=== PATIENT | female | born 1935 | race Hispanic/Latino ===

== ENCOUNTER → 2022-07-02 | Outpatient (CLI) | payer MEDICARE ==
[2022-07-02 13:09] LABS: BASOPHILS % (AUTO) 0.2 % (0.0-5.0); EOSINOPHILS % (AUTO) 0.4 % (0.0-8.0); HEMATOCRIT 31.1 % (36-48); LYMPHOCYTES % (AUTO) 41.1 % (21.0-51.0); MEAN CORPUSCULAR HEMOGLOBIN 32.5 pg (27.0-33.0); MEAN CORPUSCULAR HGB CONC 32.2 g/dL (32.0-36.0); MONOCYTES % (AUTO) 11.2 % (3.0-13.0); NEUTROPHILS % (AUTO) 46.9 % (40.0-77.0); PLATELET COUNT (AUTO) 174 K/uL (130-400); RED BLOOD CELL COUNT(AUTO) 3.08 MIL/uL (4.00-5.50); RED CELL DISTRIBUTION WIDTH 13.1 % (11.0-15.5); WHITE BLOOD COUNT (AUTO) 5.5 K/uL (4.8-10.8)
[2022-07-02 13:22] LABS: POTASSIUM 5.1 mmol/L (3.5-5.1)
== END | disposition home or self-care (01) ==
LOC: DAH 10:00 → EDSTATUS 13:00
PROVIDERS: ATTEND Urology
DX: R31.9 Hematuria, unspecified (principal); N13.30 Unspecified hydronephrosis; U07.1 COVID-19; Z53.8 Procedure and treatment not carried out for other reasons
CPT/HCPCS: 93005; 87426; 80048; 85025; 36415; A6260

== ENCOUNTER 2022-08-01 07:09 | Day surgery (SDC) | payer MEDICARE ==
[2022-07-30 12:45] LABS: BASOPHILS % (AUTO) 0.3 % (0.0-5.0); EOSINOPHILS % (AUTO) 0.7 % (0.0-8.0); HEMATOCRIT 31.1 % (36-48); LYMPHOCYTES % (AUTO) 28.9 % (21.0-51.0); MEAN CORPUSCULAR HEMOGLOBIN 33.2 pg (27.0-33.0); MEAN CORPUSCULAR HGB CONC 32.5 g/dL (32.0-36.0); MEAN CORPUSCULAR VOLUME 102.3 fL (79-99); MONOCYTES % (AUTO) 10.8 % (3.0-13.0); NEUTROPHILS % (AUTO) 59.1 % (40.0-77.0); PLATELET COUNT (AUTO) 188 K/uL (130-400); RED BLOOD CELL COUNT(AUTO) 3.04 MIL/uL (4.00-5.50); RED CELL DISTRIBUTION WIDTH 14.6 % (11.0-15.5); WHITE BLOOD COUNT (AUTO) 5.7 K/uL (4.8-10.8)
[2022-07-30 13:00] LABS: CREATININE 0.9 mg/dL (0.5-1.5); POTASSIUM 4.4 mmol/L (3.5-5.1)
[2022-07-30 13:34] VITALS: BP 180/76
[~2022-08-01] VITALS: Ht 157.5 cm; Wt 58.3 kg
[2022-08-01] VITALS (19 sets, daily range): BP systolic 156–190; BP diastolic 59–87
[~2022-08-01 07:09] MED LIST: ACET-2079 PO; APIX5TAB PO; METO25TA6 PO; METO50TA18 PO; PRAV20TA4 PO
[2022-08-01] MEDS ORDERED: LACTATED RINGERS 1000ML 1,000 ML IV ONE (07:35)
[2022-08-01] MEDS ORDERED: IOHEXOL-350 50ML VIAL IV ONE (07:53)
[2022-08-01] MEDS ORDERED: FENTANYL CITRATE PF 50 MCG/1 ML 2ML VIAL ONE (07:57)
[2022-08-01] MEDS ORDERED: ROCURONIUM 10MG/1ML SYR 10 MG/ML ML ONE (07:57)
[2022-08-01] MEDS ORDERED: ONDANSETRON 4MG INJ ONE (07:57)
[2022-08-01] MEDS ORDERED: PROPOFOL 10 MG/ML 20ML VIAL IV ONE (07:57)
[2022-08-01] MEDS ORDERED: CEFTRIAXONE 1G VIAL IVPB PRN (08:00)
[2022-08-01] MEDS ORDERED: PHENYLEPHRINE HCL 10 MG/ML 1ML VIAL IV ONE (09:42)
[2022-08-01] MEDS ORDERED: NEOSTIGMINE 5MG/5ML SYR IV ONE (09:45)
[2022-08-01] MEDS ORDERED: GLYCOPYRROLATE 1 MG/5 ML SYRINGE ONE (09:45)
[2022-08-01] MEDS ORDERED: MORPHINE 4 MG SYG ONE (10:17)
[2022-08-01] MEDS ORDERED: MORPHINE 2 MG SYG ONE (10:34)
[2022-08-01] MEDS ORDERED: PHENAZOPYRIDINE HCL 200 MG TABLET ONE (11:21)
[2022-08-01] MEDS ORDERED: HYDRALAZINE 20MG/ML VIAL IV PRN (13:30)
== END 2022-08-01 11:45 | disposition home or self-care (01) ==
LOC: DAH 07:09
PROVIDERS: ATTEND Urology
DX: N13.1 Hydronephrosis with ureteral stricture, not elsewhere classified (principal); Z20.822 Contact with and (suspected) exposure to COVID-19; N95.2 Postmenopausal atrophic vaginitis; R31.9 Hematuria, unspecified; I10 Essential (primary) hypertension; M19.90 Unspecified osteoarthritis, unspecified site; I48.91 Unspecified atrial fibrillation; Z79.01 Long term (current) use of anticoagulants; Z79.899 Other long term (current) drug therapy; Z80.7 Family history of other malignant neoplasms of lymphoid, hematopoietic and related tissues
CPT/HCPCS: 80048; 85025; 87426; 36415; 93005; 52332; 74420; A6260; A4663; J7120 ×2; C1769; C1758; C2617; J3010; J3490; J2710; J0696; J2704; J2405; J2270; J2370; Q9967; A4358; A4215; A4223; A4222; A4221; A4600; A4510

== ENCOUNTER 2023-04-10 15:03 | Inpatient (IN) | payer MEDICARE ==
[~2023-04-10] VITALS: Ht 160 cm; Wt 68.7 kg
[~2023-04-10 15:03] MED LIST changes: +BUSP5TAB3 PO; +FOLI0.8T3 PO; +LOSA-418 PO; -METO50TA18 PO; +TRAM50TA4 PO
[2023-04-10] MEDS ORDERED: 0.9%NACL 1000ML 1,779 ML IV ONE (16:00)
[2023-04-10 16:09] LABS: BASOPHILS # (AUTO) 0.02 K/uL (0.00-0.20); BASOPHILS % (AUTO) 0.5 % (0.0-5.0); EOSINOPHILS # (AUTO) 0.04 K/uL (0.00-0.70); EOSINOPHILS % (AUTO) 0.9 % (0.0-8.0); HEMATOCRIT 22.7 % (36-48); IMMATURE GRANULOCYTE ABSOLUTE 0.02 K/uL (0-1); LYMPHOCYTES # (AUTO) 1.2 K/uL (1.0-4.8); LYMPHOCYTES % (AUTO) 26.6 % (21.0-51.0); MEAN CORPUSCULAR HEMOGLOBIN 35.6 pg (27.0-33.0); MEAN CORPUSCULAR HGB CONC 34.4 g/dL (32.0-36.0); MEAN CORPUSCULAR VOLUME 103.7 fL (79-99); MONOCYTES # (AUTO) 0.6 K/uL (0.1-1.0); MONOCYTES % (AUTO) 12.8 % (3.0-13.0); NEUTROPHILS # (AUTO) 2.6 K/uL (1.8-7.7); NEUTROPHILS % (AUTO) 58.7 % (40.0-77.0); PLATELET COUNT (AUTO) 95 K/uL (130-400); RED BLOOD CELL COUNT(AUTO) 2.19 MIL/uL (4.00-5.50); RED CELL DISTRIBUTION WIDTH 16.2 % (11.0-15.5); WHITE BLOOD COUNT (AUTO) 4.4 K/uL (4.8-10.8)
[2023-04-10 16:23] LABS: CREATININE 1.2 mg/dL (0.5-1.5); POTASSIUM 3.7 mmol/L (3.5-5.1)
[2023-04-10] MEDS ORDERED: GUAIFENESIN-DM 200/20 MG 10 ML PO PRN (17:00)
[2023-04-10] MEDS ORDERED: GUAIFENESIN SUGAR-FREE 100 MG/5 ML UDCUP PO PRN (17:00)
[2023-04-10] MEDS ORDERED: GLUCAGON 1MG KIT 1 MG ML IM PRN (17:00)
[2023-04-10] MEDS ORDERED: ZOLPIDEM TARTRATE 5 MG TAB PO PRN (17:00)
[2023-04-10] MEDS ORDERED: POLYETHYLENE GLYCOL 3350 17 GM POWD.PACK PO PRN (17:00)
[2023-04-10] MEDS ORDERED: MAG/ALUM/SIMETH 30 ML UDCUP PO PRN (17:00)
[2023-04-10] MEDS ORDERED: LACTULOSE 20 GM/30 ML UDCUP PO PRN (17:00)
[2023-04-10] MEDS ORDERED: NITROGLYCERIN 0.4 MG SL TAB SL PRN (17:00)
[2023-04-10] MEDS ORDERED: DOCUSATE SODIUM 100 MG CAP PO PRN (17:00)
[2023-04-10] MEDS ORDERED: POTASSIUM CHLORIDE 20MEQ/100ML 100 ML IV PRN ×2 (17:00)
[2023-04-10] MEDS ORDERED: DEXTROSE 50%-WATER 50 ML DISP.SYRIN IV PRN (17:00)
[2023-04-10] MEDS ORDERED: DiphenhydrAMINE HCL 50 MG/ML VIAL IV PRN (17:00)
[2023-04-10] MEDS ORDERED: POTASSIUM CHLORIDE 10% ELIXIR 20 MEQ/15 ML UDCUP PO PRN (17:00)
[2023-04-10] MEDS ORDERED: DIPHENHYDRAMINE HCL 25 MG CAPSULE PO PRN (17:00)
[2023-04-10] MEDS ORDERED: ACETAMINOPHEN 325 MG TAB PO PRN (17:00)
[2023-04-10] MEDS ORDERED: ALPRAZOLAM 0.5 MG TABLET PO PRN (17:00)
[2023-04-10] MEDS: IPRATROPIUM 0.5 MG/2.5 ML INH IH SCH ×2 (18:18→23:11)
[2023-04-10] MEDS: SODIUM CHLORIDE 3% FOR INHALATION 4 ML/AMP VIAL.NEB IH SCH ×2 (18:19→23:11)
[2023-04-10 18:22] VITALS: PULSE 79; RESP 12
[2023-04-10 18:23] VITALS: PULSE 78; RESP 12; O2SAT 100
[2023-04-10] MEDS: CEFEPIME HCL 2 GM VIAL IVPB SCH (18:24)
[2023-04-10] MEDS: BUSPIRONE HCL 5 MG TABLET PO SCH (20:34)
[2023-04-10] MEDS: FAMOTIDINE 20MG VIAL IV SCH (20:34)
[2023-04-10] MEDS: INSULIN HUMULIN R 100 UNIT/ML 3ML SQ SCH (20:38)
[2023-04-10 21:30] VITALS: BP 117/70; PULSE 88; RESP 18
[2023-04-10] MEDS: ACETAMINOPHEN 325 MG TAB PO PRN (21:49)
[2023-04-10 22:00] VITALS: O2SAT 96
[2023-04-10 23:11] VITALS: PULSE 78; RESP 14
[2023-04-10 23:37] VITALS: BP 113/52; PULSE 80; RESP 18
[2023-04-11] VITALS (16 sets, daily range): BP systolic 103–139; BP diastolic 57–81; PULSE 72–115; RESP 14–20; O2SAT 96–100
[2023-04-11 04:15] LABS: ALBUMIN 1.8 g/dL (3.5-5.0); BILIRUBIN,TOTAL 0.5 mg/dL (0.2-1.0); MAGNESIUM 1.2 mg/dL (1.80-2.40); POTASSIUM 3.3 mmol/L (3.5-5.1); TOTAL PROTEIN, SERUM 4.7 g/dL (6.0-8.3)
[2023-04-11] MEDS: CEFEPIME HCL 2 GM VIAL IVPB SCH ×2 (05:06→17:12)
[2023-04-11] MEDS: KCL 20 MEQ ERTAB PO PRN (05:06)
[2023-04-11] MEDS: ACETAMINOPHEN 325 MG TAB PO PRN (05:08)
[2023-04-11] MEDS: INSULIN HUMULIN R 100 UNIT/ML 3ML SQ SCH ×4 (06:03→21:00)
[2023-04-11] MEDS: MAGNESIUM 2GM PREMIX 50ML 50 ML IV PRN (06:38)
[2023-04-11] MEDS: IPRATROPIUM 0.5 MG/2.5 ML INH IH SCH ×4 (06:56→23:00)
[2023-04-11] MEDS: SODIUM CHLORIDE 3% FOR INHALATION 4 ML/AMP VIAL.NEB IH SCH ×4 (06:56→23:00)
[2023-04-11] MEDS ORDERED: SODI100037 PO (07:36)
[2023-04-11] MEDS ORDERED: ACET-2247 PO (07:36)
[2023-04-11] MEDS ORDERED: NON-FORMULARY MEDICATION 1 EACH (Folic Acid 1 MG) PO SCH (12:00)
[2023-04-11] MEDS: FOLIC ACID 1 MG TABLET PO SCH (12:27)
[2023-04-11] MEDS: DRONABINOL 2.5 MG CAP PO SCH (15:34)
[2023-04-11 17:37] LABS: HEMATOCRIT 23.2 % (36-48)
[2023-04-11 17:45] LABS: % IRON SATURATION 14.8 % (22-44)
[2023-04-11 18:12] LABS: APPEARANCE,URINE CLEAR (CLEAR); BILIRUBIN,URINE NEGATIVE (NEGATIVE); COLOR,URINE LIGHT-YELLOW (YELLOW); GLUCOSE, URINE (UA) NEGATIVE (NEGATIVE); KETONES,URINE NEGATIVE (NEGATIVE); LEUKOCYTE ESTERASE ,URINE NEGATIVE Leu/uL (NEGATIVE); NITRATE,URINE NEGATIVE (NEGATIVE); OCCULT BLOOD,URINE LARGE (NEGATIVE); PH,URINE 5.5 (5.0-8.0); PROTEIN,URINE NEGATIVE (NEGATIVE); UROBILINOGEN,URINE 0.2 mg/dL (0.2-1.0)
[2023-04-11 18:13] LABS: THYROID STIMULATING HORMONE 6.29 uIU/mL (0.36-3.74)
[2023-04-11 18:14] LABS: MUCUS,URINE RARE LPF (None Seen); SQUAMOUS EPITHELIAL CELL,UR RARE /HPF (0-2)
[2023-04-11] MEDS ORDERED: FUROSEMIDE 40MG VIAL IV ONE (19:30)
[2023-04-11] MEDS: APIXABAN 5 MG TABLET PO SCH (20:34)
[2023-04-11] MEDS: FAMOTIDINE 20MG VIAL IV SCH (20:34)
[2023-04-11] MEDS: BUSPIRONE HCL 5 MG TABLET PO SCH (20:34)
[2023-04-11] MEDS: METOPROLOL TARTRATE 25 MG TAB PO SCH (20:35)
[2023-04-12] VITALS (14 sets, daily range): BP systolic 106–132; BP diastolic 58–73; PULSE 62–86; RESP 17–20; O2SAT 95–100
[2023-04-12] MEDS: ACETAMINOPHEN 325 MG TAB PO PRN (00:54)
[2023-04-12 04:23] LABS: BASOPHILS # (AUTO) 0.03 K/uL (0.00-0.20); BASOPHILS % (AUTO) 0.7 % (0.0-5.0); EOSINOPHILS # (AUTO) 0.05 K/uL (0.00-0.70); EOSINOPHILS % (AUTO) 1.1 % (0.0-8.0); IMMATURE GRANULOCYTE ABSOLUTE 0.01 K/uL (0-1); LYMPHOCYTES # (AUTO) 1.1 K/uL (1.0-4.8); LYMPHOCYTES % (AUTO) 23.6 % (21.0-51.0); MEAN CORPUSCULAR HEMOGLOBIN 35.2 pg (27.0-33.0); MEAN CORPUSCULAR HGB CONC 35.6 g/dL (32.0-36.0); MEAN CORPUSCULAR VOLUME 98.8 fL (79-99); MONOCYTES # (AUTO) 0.6 K/uL (0.1-1.0); MONOCYTES % (AUTO) 13.6 % (3.0-13.0); NEUTROPHILS # (AUTO) 2.7 K/uL (1.8-7.7); NEUTROPHILS % (AUTO) 60.8 % (40.0-77.0); PLATELET COUNT (AUTO) 78 K/uL (130-400); RED BLOOD CELL COUNT(AUTO) 2.53 MIL/uL (4.00-5.50); RED CELL DISTRIBUTION WIDTH 18.6 % (11.0-15.5); WHITE BLOOD COUNT (AUTO) 4.5 K/uL (4.8-10.8)
[2023-04-12 04:27] LABS: MAGNESIUM 1.4 mg/dL (1.80-2.40); POTASSIUM 3.4 mmol/L (3.5-5.1)
[2023-04-12] MEDS: CEFEPIME HCL 2 GM VIAL IVPB SCH ×2 (04:43→17:15)
[2023-04-12 04:51] LABS: B-TYPE NATRIURETIC PEPTIDE 168 pg/mL (0-100)
[2023-04-12] MEDS: KCL 20 MEQ ERTAB PO PRN ×3 (05:06→09:14)
[2023-04-12] MEDS: MAGNESIUM 2GM PREMIX 50ML 50 ML IV PRN (05:07)
[2023-04-12] MEDS: IPRATROPIUM 0.5 MG/2.5 ML INH IH SCH ×4 (07:00→23:12)
[2023-04-12] MEDS: SODIUM CHLORIDE 3% FOR INHALATION 4 ML/AMP VIAL.NEB IH SCH ×4 (07:00→23:12)
[2023-04-12] MEDS: INSULIN HUMULIN R 100 UNIT/ML 3ML SQ SCH ×4 (07:30→20:21)
[2023-04-12] MEDS: APIXABAN 5 MG TABLET PO SCH ×2 (09:13→20:19)
[2023-04-12] MEDS: SODIUM CHLORIDE 1,000 MG TAB PO SCH (09:14)
[2023-04-12] MEDS: DRONABINOL 2.5 MG CAP PO SCH (09:14)
[2023-04-12] MEDS: METOPROLOL TARTRATE 25 MG TAB PO SCH ×2 (09:14→20:19)
[2023-04-12] MEDS: ONDANSETRON 4MG INJ IV PRN (09:28)
[2023-04-12] MEDS ORDERED: NON-FORMULARY MEDICATION 1 EACH (Pravastatin Sodium 20 MG) PO SCH (12:00)
[2023-04-12] MEDS: ATORVASTATIN 10 MG TABLET PO SCH (12:52)
[2023-04-12] MEDS: FOLIC ACID 1 MG TABLET PO SCH (12:52)
[2023-04-12] MEDS: BUSPIRONE HCL 5 MG TABLET PO SCH (20:19)
[2023-04-12] MEDS: FAMOTIDINE 20MG VIAL IV SCH (20:19)
[2023-04-13] VITALS (14 sets, daily range): BP systolic 98–135; BP diastolic 52–76; PULSE 69–87; RESP 16–22; O2SAT 96–100
[2023-04-13] MEDS: CEFEPIME HCL 2 GM VIAL IVPB SCH ×2 (04:49→17:16)
[2023-04-13] MEDS: ACETAMINOPHEN 325 MG TAB PO PRN ×2 (04:51→17:05)
[2023-04-13 05:45] LABS: BASOPHILS # (AUTO) 0.03 K/uL (0.00-0.20); BASOPHILS % (AUTO) 0.6 % (0.0-5.0); EOSINOPHILS # (AUTO) 0.08 K/uL (0.00-0.70); EOSINOPHILS % (AUTO) 1.6 % (0.0-8.0); HEMATOCRIT 28.1 % (36-48); IMMATURE GRANULOCYTE ABSOLUTE 0.03 K/uL (0-1); LYMPHOCYTES # (AUTO) 1.2 K/uL (1.0-4.8); LYMPHOCYTES % (AUTO) 24.3 % (21.0-51.0); MEAN CORPUSCULAR HEMOGLOBIN 35.1 pg (27.0-33.0); MEAN CORPUSCULAR HGB CONC 34.5 g/dL (32.0-36.0); MEAN CORPUSCULAR VOLUME 101.8 fL (79-99); MONOCYTES # (AUTO) 0.5 K/uL (0.1-1.0); MONOCYTES % (AUTO) 10.6 % (3.0-13.0); NEUTROPHILS # (AUTO) 3.1 K/uL (1.8-7.7); NEUTROPHILS % (AUTO) 62.3 % (40.0-77.0); PLATELET COUNT (AUTO) 78 K/uL (130-400); RED BLOOD CELL COUNT(AUTO) 2.76 MIL/uL (4.00-5.50); RED CELL DISTRIBUTION WIDTH 18.2 % (11.0-15.5)
[2023-04-13 05:47] LABS: POTASSIUM 4.2 mmol/L (3.5-5.1)
[2023-04-13] MEDS: SODIUM CHLORIDE 3% FOR INHALATION 4 ML/AMP VIAL.NEB IH SCH ×2 (06:26→11:21)
[2023-04-13] MEDS: IPRATROPIUM 0.5 MG/2.5 ML INH IH SCH ×4 (06:26→23:09)
[2023-04-13] MEDS: INSULIN HUMULIN R 100 UNIT/ML 3ML SQ SCH ×4 (07:30→20:42)
[2023-04-13] MEDS: APIXABAN 5 MG TABLET PO SCH ×2 (08:48→20:43)
[2023-04-13] MEDS: SODIUM CHLORIDE 1,000 MG TAB PO SCH (08:48)
[2023-04-13] MEDS: METOPROLOL TARTRATE 25 MG TAB PO SCH ×2 (08:48→20:43)
[2023-04-13] MEDS: DRONABINOL 2.5 MG CAP PO SCH (08:48)
[2023-04-13] MEDS: ONDANSETRON 4MG INJ IV PRN (09:04)
[2023-04-13] MEDS: ATORVASTATIN 10 MG TABLET PO SCH (12:29)
[2023-04-13] MEDS: FOLIC ACID 1 MG TABLET PO SCH (12:29)
[2023-04-13] MEDS: FAMOTIDINE 20MG VIAL IV SCH (20:43)
[2023-04-13] MEDS: BUSPIRONE HCL 5 MG TABLET PO SCH (20:43)
[2023-04-14] VITALS (9 sets, daily range): BP systolic 117–154; BP diastolic 59–80; PULSE 64–80; RESP 18–20; O2SAT 96–100
[2023-04-14 04:34] LABS: BASOPHILS # (AUTO) 0.03 K/uL (0.00-0.20); BASOPHILS % (AUTO) 0.7 % (0.0-5.0); EOSINOPHILS % (AUTO) 2.3 % (0.0-8.0); IMMATURE GRANULOCYTE ABSOLUTE 0.01 K/uL (0-1); LYMPHOCYTES # (AUTO) 1.1 K/uL (1.0-4.8); LYMPHOCYTES % (AUTO) 25.5 % (21.0-51.0); MEAN CORPUSCULAR HEMOGLOBIN 34.8 pg (27.0-33.0); MEAN CORPUSCULAR HGB CONC 35.2 g/dL (32.0-36.0); MEAN CORPUSCULAR VOLUME 98.8 fL (79-99); MONOCYTES # (AUTO) 0.6 K/uL (0.1-1.0); MONOCYTES % (AUTO) 14.8 % (3.0-13.0); NEUTROPHILS # (AUTO) 2.4 K/uL (1.8-7.7); NEUTROPHILS % (AUTO) 56.5 % (40.0-77.0); PLATELET COUNT (AUTO) 65 K/uL (130-400); RED BLOOD CELL COUNT(AUTO) 2.53 MIL/uL (4.00-5.50); RED CELL DISTRIBUTION WIDTH 17.7 % (11.0-15.5); WHITE BLOOD COUNT (AUTO) 4.3 K/uL (4.8-10.8)
[2023-04-14 04:42] LABS: CREATININE 0.8 mg/dL (0.5-1.5); POTASSIUM 4.1 mmol/L (3.5-5.1)
[2023-04-14] MEDS: INSULIN HUMULIN R 100 UNIT/ML 3ML SQ SCH ×3 (05:16→16:30)
[2023-04-14] MEDS: ACETAMINOPHEN 325 MG TAB PO PRN (05:33)
[2023-04-14] MEDS: IPRATROPIUM 0.5 MG/2.5 ML INH IH SCH ×2 (06:42→11:17)
[2023-04-14] MEDS: SODIUM CHLORIDE 1,000 MG TAB PO SCH (08:00)
[2023-04-14] MEDS: APIXABAN 5 MG TABLET PO SCH (08:00)
[2023-04-14] MEDS: METOPROLOL TARTRATE 25 MG TAB PO SCH (08:00)
[2023-04-14] MEDS: DRONABINOL 2.5 MG CAP PO SCH (08:00)
[2023-04-14] MEDS: FOLIC ACID 1 MG TABLET PO SCH (12:21)
[2023-04-14] MEDS: ATORVASTATIN 10 MG TABLET PO SCH (12:21)
== END 2023-04-14 16:30 | disposition hospice, home (50) | DRG 640 ==
LOC: EDH 15:03 → EDHIP 16:51 → OBSVTOIN 16:51 → 2AH 21:02
PROVIDERS: ADMIT Internal Medicine Critical Care Medicine; ATTEND Internal Medicine Critical Care Medicine
PROC: 30233N1 Transfusion of Nonautologous Red Blood Cells into Peripheral Vein, Percutaneous Approach (ICD-10-PCS; principal; 2023-04-11)
DX: E86.0 Dehydration (principal); E43 Unspecified severe protein-calorie malnutrition; I50.33 Acute on chronic diastolic (congestive) heart failure; R57.1 Hypovolemic shock; N30.00 Acute cystitis without hematuria; D61.818 Other pancytopenia; J96.11 Chronic respiratory failure with hypoxia; C64.1 Malignant neoplasm of right kidney, except renal pelvis; C83.30 Diffuse large B-cell lymphoma, unspecified site; I48.20 Chronic atrial fibrillation, unspecified; J98.11 Atelectasis; E86.1 Hypovolemia; E87.1 Hypo-osmolality and hyponatremia; R62.7 Adult failure to thrive; D50.0 Iron deficiency anemia secondary to blood loss (chronic); E78.00 Pure hypercholesterolemia, unspecified; I11.0 Hypertensive heart disease with heart failure; I25.10 Atherosclerotic heart disease of native coronary artery without angina pectoris; I48.0 Paroxysmal atrial fibrillation; Z99.81 Dependence on supplemental oxygen; Z85.528 Personal history of other malignant neoplasm of kidney; Z51.5 Encounter for palliative care; Z63.4 Disappearance and death of family member; Z79.01 Long term (current) use of anticoagulants; Z80.0 Family history of malignant neoplasm of digestive organs; Z80.1 Family history of malignant neoplasm of trachea, bronchus and lung; Z83.3 Family history of diabetes mellitus; Z92.21 Personal history of antineoplastic chemotherapy; Z96.1 Presence of intraocular lens; Z96.652 Presence of left artificial knee joint; Z98.41 Cataract extraction status, right eye; Z98.42 Cataract extraction status, left eye; Z68.26 Body mass index [BMI] 26.0-26.9, adult
CPT/HCPCS: 36415; 36430; 71045; 80048; 80053; 81001; 82607; 82746; 82948; 83540; 83550; 83605; 83735; 83880; 83930; 83935; 84145; 84300; 84443; 84484; 85014; 85018; 85025; 85378; 86850; 86900; 86901; 86923; 87040; 87088; 93005; 93306; 93970; 94640; 94664; G0378; J0692; J1815; J1940; J2405; J3475; J3490; P9016; Q0167